=== PATIENT | male | born 1995 | race Two or more races ===

== ENCOUNTER 2022-04-30 19:58 | Emergency (ER) | payer OTHER ==
[~2022-04-30] VITALS: Ht 180.3 cm; Wt 89.8 kg
[2022-04-30] MEDS ORDERED: CHLORTHALIDONE25 MG (21:08)
[2022-04-30] MEDS ORDERED: TOPROL XL25 M1 (21:08)
[2022-04-30] MEDS ORDERED: KETO10TA2 PO (22:44)
== END 2022-04-30 23:07 | disposition home or self-care (01) ==
LOC: ER 19:58
DX: R10.32 Left lower quadrant pain (principal); Z20.822 Contact with and (suspected) exposure to COVID-19

== ENCOUNTER 2022-05-11 17:17 | Emergency (ER) | payer OTHER ==
[~2022-05-11] VITALS: Ht 182.9 cm; Wt 102.1 kg
[~2022-05-11 17:17] MED LIST: CHLORTHALIDONE25 MG; KETO10TA2 PO; TOPROL XL25 M1
== END 2022-05-11 21:35 | disposition home or self-care (01) ==
LOC: ER
DX: R07.89 Other chest pain (principal); I10 Essential (primary) hypertension

== ENCOUNTER 2022-09-27 04:09 | Emergency (ER) | payer OTHER ==
[~2022-09-27] VITALS: Ht 180.3 cm; Wt 93.0 kg
[2022-09-27] MEDS ORDERED: TOPROL XL100 M1 (04:17)
== END 2022-09-27 09:50 | disposition home or self-care (01) ==
LOC: ER 04:09
DX: R07.89 Other chest pain (principal)